=== PATIENT | male | born 1985 ===

== ENCOUNTER 2020-11-19 23:32 | Outpatient (REF) | payer MEDICAID, SELFPAY ==
[2020-11-19 14:13] LABS: HCT 46.3 % (40.0-50.0); HGB 15.3 g/dL (13.5-17.5); MCV 84.8 fL (80-95); MPV 9.2 fL (8.0-11.0); Platelet Count 416 10^3/uL (130-400); RBC 5.46 10^6/uL (4.36-5.78); RDW 13.5 % (11.8-14.1); RDW-SD 41.7 fL; WBC 8.26 10^3/uL (4.4-10.8)
[2020-11-19 14:55] LABS: Vitamin D 25 Total 27.6 ng/ml (30-100)
[2020-11-19 14:59] LABS: ALT 26 U/L (16-63); AST 16 U/L (15-37); Albumin 4.1 g/dL (3.4-5.0); Alkaline Phosphatase 71 U/L (46-116); Anion Gap 9.4 mmol/L (3-11); BUN 22 mg/dL (7-18); Bilirubin, Total 0.6 mg/dL (0.2-1.0); CO2 27.6 mmol/L (21.0-32.0); Calcium 8.9 mg/dL (8.5-10.1); Calculated LDL 108 mg/dL (<100); Chloride 104 mmol/L (98-107); Cholesterol 183 mg/dL (<200); Glucose 88 mg/dL (74-106); HDL Cholesterol 38 mg/dL (40-60); Potassium 4.6 mmol/L (3.5-5.1); Sodium 141 mmol/L (136-145); TSH (W/Ref FT4) 1.54 uIU/mL (0.36-3.74); Total Protein 7.5 g/dL (6.4-8.2); Triglyceride 185 mg/dL (<150); Vitamin B12 391 pg/mL (193-986)
== END 2020-11-19 23:33 | disposition home or self-care (01) ==
LOC: NCHCN 23:32
PROVIDERS: PCP Nurse Practitioner Family; Visit Provider Nurse Practitioner Family
DX: F32.9 Major depressive disorder, single episode, unspecified (principal); Z13.220 Encounter for screening for lipoid disorders; Z00.00 Encounter for general adult medical examination without abnormal findings; E55.9 Vitamin D deficiency, unspecified
CPT/HCPCS: 80053; 80061; 82306; 85027; 82607; 84443

== ENCOUNTER 2021-02-15 10:45 | Outpatient (REF) | payer MEDICAID, SELFPAY ==
[2021-02-15 23:09] LABS: Vitamin D 25 Total 28.9 ng/mL (30-100)
== END 2021-02-15 10:46 | disposition home or self-care (01) ==
LOC: NCHCN 10:45
PROVIDERS: PCP Nurse Practitioner Family; Visit Provider Nurse Practitioner Family
DX: E55.9 Vitamin D deficiency, unspecified (principal); E53.8 Deficiency of other specified B group vitamins; F32.9 Major depressive disorder, single episode, unspecified
CPT/HCPCS: 82306; 82607

== ENCOUNTER 2021-12-16 20:01 | Outpatient (REF) | payer MEDICAID, SELFPAY ==
[2021-12-16 21:31] LABS: Vitamin D 25 Total 24.8 ng/mL (30-100)
[2021-12-16 21:36] LABS: Vitamin B12 1116 pg/mL (193-986)
== END 2021-12-16 20:02 | disposition home or self-care (01) ==
LOC: NCHCN 20:01
PROVIDERS: PCP Nurse Practitioner Family; Visit Provider Nurse Practitioner Psychiatric/Mental Health
DX: E55.9 Vitamin D deficiency, unspecified (principal); E53.8 Deficiency of other specified B group vitamins; F32.9 Major depressive disorder, single episode, unspecified
CPT/HCPCS: 82306; 82607

== ENCOUNTER 2022-03-29 15:10 | Outpatient (REF) | payer MEDICAID, SELFPAY ==
[2022-03-29 15:35] LABS: Vitamin B12 794 pg/mL (193-986)
[2022-03-31 05:49] LABS: Vitamin D 25 Total 33.6 ng/mL (30-100)
== END 2022-03-29 15:11 | disposition home or self-care (01) ==
LOC: NCHCN 15:10
PROVIDERS: PCP Nurse Practitioner Family; Visit Provider Nurse Practitioner Psychiatric/Mental Health
DX: E53.8 Deficiency of other specified B group vitamins (principal); E55.9 Vitamin D deficiency, unspecified
CPT/HCPCS: 82306; 82607